=== PATIENT | female | born 1995 ===

== ENCOUNTER 2024-06-03 23:49 | Inpatient (IN) | payer OTHER ==
[~2024-06-03] VITALS: Ht 177.8 cm; Wt 81.8 kg
[2024-06-04] VITALS (20 sets, daily range): BP systolic 95–148; BP diastolic 53–89
[2024-06-04] MEDS ORDERED: FentaNYL Citrate 50 MCG/ML 2 ML Injection IV PRN (00:10)
[2024-06-04] MEDS ORDERED: Misoprostol 200 MCG Tab PR PRN ×2 (00:15→12:00)
[2024-06-04] MEDS ORDERED: Oxytocin 10 Unit / ML Vial IM PRN (00:15)
[2024-06-04] MEDS ORDERED: Misoprostol 200 MCG Tab BC PRN (00:15)
[2024-06-04] MEDS ORDERED: Acetaminophen 500 MG Tab PO PRN (00:15)
[2024-06-04] MEDS ORDERED: Penicillin G Potassium 5,000,000 UNITS in NS 250 ML IV ONE (00:15)
[2024-06-04] MEDS ORDERED: ePHEDrine Sulfate 50 MG/ML 1ML Injection XX PRN (00:15)
[2024-06-04] MEDS ORDERED: FentaNYL 2mcg/ml-Bup 0.1% Epd 250 ML EPI PRN (00:15)
[2024-06-04] MEDS ORDERED: OXYTOCIN/RINGER'S LACTATE 500 ML IV PRN (00:15)
[2024-06-04] MEDS ORDERED: Methylergonovine Maleate 0.2MG / ML 1ML Amp IM PRN ×2 (00:15→12:10)
[2024-06-04] MEDS ORDERED: Lactated Ringer's 1,000 ML IV ONE (00:15)
[2024-06-04] MEDS ORDERED: Tranexamic Acid 1,000 MG in NS 100 ML IV SCH (00:15)
[2024-06-04] MEDS ORDERED: Carboprost Tromethamine 250 MCG/ML 1ML Amp IM PRN ×2 (00:15→12:00)
[2024-06-04] MEDS ORDERED: Ondansetron HCl 2 MG / ML 2ML Vial IV PRN (00:15)
[2024-06-04] MEDS ORDERED: Calcium Carbonate 500 MG Tab Chew PO SCH (00:20)
[2024-06-04] MEDS ORDERED: Lactated Ringer's 1,000 ML IV SCH ×4 (00:20→12:10)
[2024-06-04 00:26] LABS: BASOPHILS ABSOLUTE AUTO 0.02 K/mm3 (0.00-0.23); BASOPHILS PERCENT AUTO 0 % (0-2); EOSINOPHILS PERCENT AUTO 0 % (0-6); Hematocrit 38.8 % (33.0-51.0); IMMATURE GRAN ABSOLUTE AUTO 0.08 K/mm3 (0.00-0.10); IMMATURE GRAN PERCENT AUTO 1 % (0-1); LYMPHOCYTES ABSOLUTE AUTO 0.69 K/mm3 (0.84-5.20); LYMPHOCYTES PERCENT AUTO 4 % (21-46); MONOCYTES ABSOLUTE AUTO 0.98 K/mm3 (0.16-1.47); MONOCYTES PERCENT AUTO 6 % (4-13); Mean Corpuscular HGB 31.9 pg (26.0-34.0); Mean Corpuscular HGB Conc 36.1 g/dL (31.5-36.5); Mean Corpuscular Volume 88 fL (80-100); Mean Platelet Volume 9.5 fL (9.1-12.4); NEUTROPHILS ABSOLUTE AUTO 15.04 K/mm3 (1.96-9.15); NEUTROPHILS PERCENT AUTO 90 % (41-73); Platelet Count 227 K/mm3 (150-400); RDW Coefficient Variation 11.9 % (11.7-14.2); RDW Standard Deviation 38.5 fL (35.1-46.3); Red Blood Cell Count 4.39 M/mm3 (3.80-5.20); White Blood Cell Count 16.81 K/mm3 (4.00-11.30)
[2024-06-04] MEDS ORDERED: PRENATAL TABLE1 EAC2 PO (00:35)
--- NOTE | 2024-06-04 03:29 | NUR ---
CHRISTIN RODRIGUEZ DC'ED D/T PT DECLINING ABX
[2024-06-04] MEDS ORDERED: Penicillin G Potassium 2,500,000 UNITS in Dextrose 5% 100 ML IV SCH (04:00)
[2024-06-04] MEDS ORDERED: Lanolin Cream TOP PRN (12:00)
[2024-06-04] MEDS ORDERED: OXYTOCIN/RINGER'S LACTATE 500 ML IV SCH (12:00)
[2024-06-04] MEDS ORDERED: Ibuprofen 400 MG Tab PO PRN (12:05)
[2024-06-04] MEDS ORDERED: Docusate Sodium 100 MG Cap PO PRN (12:05)
[2024-06-04] MEDS ORDERED: FLU VACC TS2024-25(6MOS UP)/PF 45 MCG/0.5 ML SYRINGE IM SCH (12:05)
[2024-06-04] MEDS ORDERED: Benzocaine Topical Anesthetic Spray 60GM TOP PRN (12:05)
[2024-06-04] MEDS ORDERED: Witch Hazel/Glycerin PADS TOP PRN (12:05)
[2024-06-04] MEDS ORDERED: Acetaminophen 325 MG TABLET PO PRN (12:05)
[2024-06-04] MEDS ORDERED: Ketorolac Tromethamine 30mg Vial IV PRN (12:10)
--- NOTE | 2024-06-04 12:32 | NUR ---
AMBULATED TO BATHROOM. UNABLE TO VOID AT THIS TIME. UP TO WHEELCHAIR TO NURSERY TO SEE . LINENS CHANGED. PT HAS NO COMPLAINTS AND FEELING GOOD. DENIES PAIN OR NEED FOR PAIN MEDS.
[2024-06-04 14:42] LABS: Source, Urine Foley catheter
[2024-06-04 14:45] LABS: Appearance, Urine Clear (Clear); Bilirubin, Urine Neg (Neg); Blood, Urine 5+ (Neg); Glucose Qualitative, Urine Neg (Neg); Ketones, Urine Neg (Neg); Leukocyte Esterase, Urine 1+ (Neg); Nitrite, Urine Neg (Neg); Protein, Urine Neg (Neg); Urobilinogen, Urine NORM (Normal)
--- NOTE | 2024-06-04 14:46 | NUR ---
1420 PT UNABLE TO VOID AND UTERUS IS DISPLACING TO LEFT AND ABOVE UMBILICUS. PT CONTINUES TO TRY WITH NO SUCCESS. BLADDER SCANNER DONE AND READY MORE THEN 1667. CALL TO DR HUSTON AND INDWELLING CATHETER PLACED. 1999 CLEAR URINE OUT. FUNDUS FIRM BACK AT U AND MIDLINE WITH SCANT BLEEDING.BACK TO TO NURSERY TO SEE .
[2024-06-04 15:10] LABS: Color, Urine Pale Yellow (P-Yellow)
[2024-06-04 15:12] LABS: Bacteria Rare /hpf; Red Blood Cells, Urine 0-2 /hpf (0-2); Squamous Epithelial Cells Rare /hpf (Few)
[2024-06-04] MEDS ORDERED: Methylergonovine Maleate 0.2MG / ML 1ML Amp IV ONE (17:18)
[2024-06-04] MEDS ORDERED: Oxytocin 10 Unit / ML Vial IV ONE (17:18)
[2024-06-04] MEDS ORDERED: IBUP800 PO (17:24)
[2024-06-05 01:31] VITALS: BP 96/55
[2024-06-05 04:17] VITALS: BP 96/54
[2024-06-05] MEDS ORDERED: Prenatal Vit/FE Fumarate/FA 1 Tab PO SCH (09:00)
[2024-06-05 10:30] VITALS: BP 98/73
[2024-06-05 12:53] VITALS: BP 108/64
[2024-06-05 18:04] VITALS: BP 106/63
[2024-06-05 19:39] VITALS: BP 102/62
--- NOTE | 2024-06-05 23:56 | NUR ---
PT TO BOARDER STATUS ALL DC TEACHING DONE AND PT VERBILIZED UNDERSTANDING
== END 2024-06-05 23:49 | disposition home or self-care (01) | DRG 798 ==
LOC: OBS 23:49 → BC 06-04 00:01
PROVIDERS: Obstetrics & Gynecology; ADMIT Obstetrics & Gynecology
PROC: 10E0XZZ Delivery of Products of Conception, External Approach (ICD-10-PCS; principal; 2024-06-04)
PROC: 10D17ZZ Extraction of Products of Conception, Retained, Via Natural or Artificial Opening (ICD-10-PCS; 2024-06-04)
PROC: 0KQM0ZZ Repair Perineum Muscle, Open Approach (ICD-10-PCS; 2024-06-04)
PROC: 0W8NXZZ Division of Female Perineum, External Approach (ICD-10-PCS; 2024-06-04)
PROC: 4A1H74Z Monitoring of Products of Conception, Cardiac Electrical Activity, Via Natural or Artificial Opening (ICD-10-PCS; 2024-06-04)
DX: O48.0 Post-term pregnancy (principal); Z37.0 Single live birth; Z3A.41 41 weeks gestation of pregnancy; R33.9 Retention of urine, unspecified; O90.89 Other complications of the puerperium, not elsewhere classified; O77.0 Labor and delivery complicated by meconium in amniotic fluid; O63.1 Prolonged second stage (of labor); O76 Abnormality in fetal heart rate and rhythm complicating labor and delivery; O73.0 Retained placenta without hemorrhage; O75.89 Other specified complications of labor and delivery; O70.1 Second degree perineal laceration during delivery
CPT/HCPCS: 36415; 51702; 59025; 81001; 85025; 86850; 86900; 86901; 87086; 99214; A9270; J2210; J2590; J7120